=== PATIENT | female | born 1960 | race Caucasian/White ===

== ENCOUNTER 2020-12-08 15:56 | Emergency (ER) | payer BC ==
[2020-12-08 16:11] VITALS: BP 139/60; PULSE 58
[2020-12-08] MEDS ORDERED: HYDROmorphone 1 MG/ML Syringe IVPUSH ONE (16:48)
[2020-12-08] MEDS ORDERED: Hyoscyamine 0.125 MG Tab.SL SL ONE (16:48)
[2020-12-08] MEDS ORDERED: Ondansetron 4 MG/2 ML SDV IVPUSH ONE (16:48)
--- NOTE | 2020-12-08 16:54 | EDM.PDOC ---
ED HPI GENERAL MEDICAL PROBLEM - General Chief Complaint: Abdominal Pain Stated Complaint: ABD/BACK PAIN Time Seen by Provider: 12/08/20 16:44 Source of Information: Reports: Patient History Limitations: Reports: No Limitations - History of Present Illness INITIAL COMMENTS - FREE TEXT/NARRATIVE: 60-year-old female attends the ED with chief complaint of right upper quadrant abdominal pain that radiates under her costal margin into her back primarily intrascapular region. She believes it started around 12:00 today. She had a few pastries teeth earlier this morning. Last had anything to eat around 1100 hrs. She has had similar type pain in the past but never to this severity. It is happened perhaps 3 or 4 times in the last year or 2. Today she had associated nausea and vomiting of bilious material and recently eaten food. No hematemesis. No associated fever or chills. Denies any genitourinary complaints. She does report drinking alcohol little bit more heavily over the weekend as she was at a friend[place]. Perhaps 3 or 4 drinks per day. States she did have a small bowel movement this morning without any blood. She has had previous appendectomy only. Pain is constant but does have a colicky component and at present it is worse in her back than it is in her right abdomen. Onset: Today, Sudden Onset Date: 12/08/20 Onset Time: 12:00 Duration: Hour(s):, Colic (Colicky component to the pain.), Constant, Getting Worse Location: Reports: Abdomen (Right upper quadrant of the abdomen with radiation along the costal margin into the intrascapular area.) Quality: Reports: Ache, Pressure Severity: Severe (9 out of 10.) Improves with: Reports: None Worsens with: Reports: Other Context: Denies: Activity (Down and deep breathing make the pain worse.), Exercise, Lifting, Sick Contact, Trauma, Other Associated Symptoms: Reports: Loss of Appetite, Nausea/Vomiting (Nausea and vomiting x2 since onset of pain.). 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) (Nothing would stay down.) Upper Abdomen Pain Score (Numeric/FACES): 8 - Related Data Allergies Allergy/AdvReac Type Severity Reaction Status Date / Time No Known Allergies Allergy Verified 12/08/20 16:10 Home Meds: Home Meds Amitriptyline [Elavil] 50 mg PO BEDTIME 12/08/20 [History] FLUoxetine HCl [Fluoxetine] 10 mg PO DAILY 12/08/20 [History] Hyoscyamine Sulfate [Levsin-Sl] 0.125 mg SL ASDIRECTED #6 tab.subl 12/08/20 [Rx] Levothyroxine 75 mcg PO ACBREAKFAST 12/08/20 [History] Metoprolol Tartrate [Lopressor] 25 mg PO Q12HR 12/08/20 [History] Past Medical History Cardiovascular History: Reports: Hypertension Gastrointestinal History: Reports: Chronic Constipation Musculoskeletal History: Reports: Fracture Endocrine/Metabolic History: Reports: Obesity/BMI 30+ - Past Surgical History GI Surgical History: Reports: Appendectomy Female Surgical History: Reports: Section Musculoskeletal Surgical History: Reports: Other (See Below) Other Musculoskeletal Surgeries/Procedures:: Wrist Surgery Social & Family History - Tobacco Use Tobacco Use Status *Q: Never Tobacco User - Caffeine Use Caffeine Use: Reports: Coffee - Alcohol Use Alcohol Use History: Yes Days Per Week of Alcohol Use: 1 (Social alcohol user.) Alcohol Use in Last Twelve Months: Yes Alcohol Use Frequency: Socially - Recreational Drug Use Recreational Drug Use: No - Living Situation & Occupation Living situation: Reports: Occupation: Employed ED ROS GENERAL - Review of Systems Review Of Systems: See Below Constitutional: Reports: No Symptoms. Denies: Fever, Chills, Malaise, Weakness, Fatigue, Night Sweats, Diaphoresis, Weight Loss HEENT: Reports: No Symptoms Respiratory: Reports: No Symptoms Cardiovascular: Reports: No Symptoms Endocrine: Reports: No Symptoms GI/Abdominal: Reports: Constipation : Reports: No Symptoms Musculoskeletal: Reports: No Symptoms Skin: Reports: No Symptoms Neurological: Reports: No Symptoms Psychiatric: Reports: No Symptoms Hematologic/Lymphatic: Reports: No Symptoms Immunologic: Reports: No Symptoms ED EXAM, GI/ABD - Physical Exam Exam: See Below Exam Limited By: No Limitations General Appearance: Alert, WD/WN, Moderate Distress, Other (Appears to be in significant discomfort. Temperature is 36.2 degrees. Heart rate is 58 in sinus. Respiratory to 16 with O2 sats of 97% room air. BP is 139/60.) Eyes: Bilateral: Normal Appearance (No blepharal pallor or scleral icterus.) Throat/Mouth: Normal Inspection, Normal Lips, Normal Oropharynx Respiratory/Chest: No Respiratory Distress, Lungs Clear, Normal Breath Sounds, No Accessory Muscle Use Cardiovascular: Normal Peripheral Pulses, Regular Rate, Rhythm, No Edema, No Gallop, No Murmur, No Rub GI/Abdominal Exam: Soft, No Organomegaly, No Mass, Abnormal Bowel Sounds (Bowel sounds are fairly infrequent), Other (Strongly positive Linda sign.). No: Normal Bowel Sounds, Distended, Guarding, Rigid, Rebound, Tender, Hepatomegaly, Splenomegaly Back Exam: Normal Inspection, Full Range of Motion. No: CVA Tenderness (L), CVA Tenderness (R), Paraspinal Tenderness, Vertebral Tenderness Extremities: Normal Inspection, Normal Range of Motion, Non-Tender, No Pedal Edema Neurological: Alert, Oriented, CN II-XII Intact, Normal Cognition Psychiatric: Normal Affect, Normal Mood Skin Exam: Warm, Dry, Intact, Normal Color, No Rash Course - Vital Signs Last Recorded V/S: Last Vital Signs Temp 36.2 C 12/08/20 16:08 Pulse 58 L 12/08/20 16:08 Resp 16 12/08/20 16:08 BP 139/60 12/08/20 16:08 Pulse Ox 97 12/08/20 16:08 - Orders/Labs/Meds Orders: Active Orders 24 hr Category Date Time Status Abdomen Ltd [US] Stat Exams 12/08/20 16:50 Taken URINALYSIS W/MICROSCOPIC [UA W/MICROSCOPIC] [URIN] Stat Lab 12/08/20 16:50 Ordered Dextrose 5%-0.9% NaCl [Dextrose 5%-Normal Saline] 1,000 Med 12/08/20 17:00 A ctive ml IV ASDIRECTED Ketorolac [Toradol] Med 12/08/20 17:00 Active 30 mg IVPUSH ONETIME Medication Orders Dextrose/Sodium Chloride (Dextrose 5%-Normal Saline) 1,000 mls @ 250 mls/hr IV ASDIRECTED MANGO Last Admin: 12/08/20 17:02 Dose: 250 mls/hr Documented by: ZOEY Ketorolac Tromethamine (Ketorolac 30 Mg/Ml Sdv) 30 mg IVPUSH ONETIME [facility] Last Admin: 12/08/20 16:59 Dose: 30 mg Documented by: ZOEY Labs: Laboratory Tests 12/08/20 12/08/20 12/08/20 Range/Units 16:10 16:10 17:52 WBC 9.69 (3.98-10.04) K/mm3 RBC 4.22 (3.98-5.22) M/mm3 Hgb 13.2 (11.2-15.7) gm/dl Hct 39.0 (34.1-44.9) % MCV 92.4 D (79.4-94.8) fl MCH 31.3 (25.6-32.2) pg MCHC 33.8 (32.2-35.5) g/dl RDW Std Deviation 46.8 H (36.4-46.3) fL Plt Count 262 (182-369) K/mm3 MPV 10.8 (9.4-12.3) fl Neut % (Auto) 63.1 (34.0-71.1) % Lymph % (Auto) 27.9 (19.3-51.7) % [place] % (Auto) 6.6 (4.7-12.5) % Eos % (Auto) 1.9 (0.7-5.8) Baso % (Auto) 0.1 (0.1-1.2) % Neut # (Auto) 6.12 (1.56-6.13) K/mm3 Lymph # (Auto) 2.70 (1.18-3.74) K/mm3 [place] # (Auto) 0.64 H (0.24-0.36) K/mm3 Eos # (Auto) 0.18 (0.04-0.36) K/mm3 Baso # (Auto) 0.01 (0.01-0.08) K/mm3 PT 10.3 (9.7-12.0) SECONDS INR 0.96 APTT 25.1 (21.7-31.4) SECONDS Sodium 142 (136-145) mEq/L Potassium 4.4 (3.5-5.1) mEq/L Chloride 107 (98-107) mEq/L Carbon Dioxide 23 (21-32) mEq/L Anion Gap 16.4 H (5-15) BUN 9 (7-18) mg/dL Creatinine 0.9 (0.55-1.02) mg/dL Est Cr Clr Drug Dosing 69.47 mL/min Estimated GFR (MDRD) > 60 (>60) mL/min BUN/Creatinine Ratio 10.0 L (14-18) Glucose 149 H (70-99) mg/dL Calcium 8.4 L (8.5-10.1) mg/dL Magnesium 2.0 (1.8-2.4) mg/dL Total Bilirubin 0.2 (0.2-1.0) mg/dL GGT 28 (5-55) U/L AST 19 (15-37) U/L ALT 24 (14-59) U/L Alkaline Phosphatase 79 (46-116) U/L C-Reactive Protein 0.4 (<1.0) mg/dL Total Protein 7.1 (6.4-8.2) g/dl Albumin 3.5 (3.4-5.0) g/dl Globulin 3.6 gm/dL Albumin/Globulin Ratio 1.0 (1-2) Lipase 137 (73-393) U/L Meds: Medications Generic Name Dose Route Start Last Admin Trade Name Freq PRN Reason Stop Dose Admin Dextrose/Sodium Chloride 1,000 mls @ 250 mls/hr 12/08/20 17:00 12/08/20 17:02 Dextrose 5%-Normal Saline IV 250 mls/hr ASDIRECTED MANGO Administration Ketorolac Tromethamine 30 mg 12/08/20 17:00 12/08/20 16:59 Ketorolac 30 Mg/Ml Sdv IVPUSH 30 mg ONETIME [facility] Administration Discontinued Medications Generic Name Dose Route Start Last Admin Trade Name Freq PRN Reason Stop Dose Admin Hydromorphone HCl 1 mg 12/08/20 16:48 12/08/20 17:01 Hydromorphone 1 Mg/Ml Syringe IVPUSH 12/08/20 16:49 1 mg ONETIME ONE Administration Hyoscyamine 0.125 mg 12/08/20 16:48 12/08/20 16:58 Hyoscyamine 0.125 Mg Tab.Sl SL 12/08/20 16:49 0.125 mg ONETIME ONE Administration Ondansetron HCl 4 mg 12/08/20 16:48 12/08/20 16:59 Ondansetron 4 Mg/2 Ml Sdv IVPUSH 12/08/20 16:49 4 mg ONETIME ONE Administration - Radiology Interpretation Free Text/Narrative:: 60-year-old female presents to the ED with acute onset of severe right upper quadrant abdominal pain that radiates along the costal margin into the end scapular area of her back. She states it started around noon today. She states she had a few pastries this morning with last meal about 1100 hrs. Pain did cause her to have nausea and vomiting x2 of recently eaten food and bilious emesis. No hematemesis. Bowels have been sluggish due to medication she is taking. ie. chronic constipation. Did have a small normal bowel movement for her this morning with no blood. Previous abdominal surgeries that have an appendectomy. Examination reveals strongly positive Linda sign right upper quadrant with pain worsening with inspiration. Benign back exam. Plan IV D5 normal saline at 250 mils an hour. Given Dilaudid 1 mg IV with Zofran 4 mg IV and Toradol 30 mg IV. She also be given Levsin 0.125 mg sublingual. Ultrasound of the gallbladder ordered. Routine labs including serum lipase and GGT also ordered. - Re-Assessments/Exams Free Text/Narrative Re-Assessment/Exam: 12/08/20 17:53 White count is 9.69 with 63% neutrophils. Hemoglobin is 13.2 with hematocrit of 39.0. Platelet count is 262,000. Chemistry shows a sodium of 142 and a potassium of 4.4. Chloride 107 with a bicarb of 23. Anion gap was slightly elevated at 16.4. BUN is 9 with a creatinine of 0.9 and GFR greater than 60. Glucose was 149. Calcium is 8.4 slightly low. Magnesium was 2.0. Total bilirubin is 0.2. GGT is 28. Transaminases normal. Alkaline phosphatase also normal at 79. C-reactive protein is 0.4 total protein 7.1 with an albumin fraction of 3.5. Patient reports that her pain is completely gone. She cannot take a full deep breath without pain. Gallbladder ultrasound has been completed. 12/08/20 17:56 ultrasound of the gallbladder does confirm slight gallbladder wall thickening. No signs of acute cholecystitis. There are several small gallstones and one large gallstone. I also believe there is some sludge at the neck of the gallbladder. Serum lipase returned normal at 137. No renal masses or obstructive uropathy on the right side identified. 12/08/20: 18:20: She remains pain-free. She would therefore be discharged home. 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 I advised her that getting her gallbladder out would be advisable in the very n ear future as she has had multiple attacks of biliary colic and with several stones in her gallbladder and she is unlikely to improve spontaneously. Departure - Departure Time of Disposition: 18:35 Disposition: Home, Self-Care 01 Condition: Fair Clinical Impression: Biliary colic symptom Cholelithiasis Qualifiers: Cholelithiasis location: gallbladder Cholecystitis presence: without cholecystitis Biliary obstruction: without biliary obstruction Qualified Code(s): K80.20 - Calculus of gallbladder without cholecystitis without obstruction - Discharge Information *PRESCRIPTION DRUG MONITORING PROGRAM REVIEWED*: Not Applicable *COPY OF PRESCRIPTION DRUG MONITORING REPORT IN PATIENT HOLGER: Not Applicable Prescriptions: Hyoscyamine Sulfate [Levsin-Sl] 0.125 mg SL ASDIRECTED #6 tab.subl Instructions: Cholelithiasis, Biliary Colic, Adult, Gallbladder Eating Plan Referrals: Ana Roberts MD [Primary Care Provider] - Forms: ED Department Discharge Additional Instructions: Evaluation in the emergency room today in regards to acute onset of severe right upper quadrant abdominal pain radiating through to your back characteristic of gallbladder attack. And often precipitates nausea and vomiting. It is usually precipitated by eating something fatty and often occurs within 2 to 4 hours of eating the offensive food. Gallbladder ultrasound confirmed multiple small stones in your gallbladder and one large stone. Slight gallbladder wall thickening but no evidence of active gallbladder infection. Lab test also pr evelio to be normal with no sign of biliary tree obstruction and no signs of pancreatitis. Your treated emergency room with IV fluids and pain medication Dilaudid 1 mg and Zofran 4 mg for nausea relief and Toradol 30 mg IV for inflammation. This worked well to relieve your acute pain. He also did receive Levsin tablet under the tongue 0.125 mg as well. I have written a prescription for these tablets to be taken for recurrence of any similar symptoms almost immediately upon development of the symptoms. May take 1 tablet and then repeat in 10 minutes if not completely better or only partially improved. If 2 tablets do not work then further tablets will not be successful in relieving your pain you would need to return to the ED. As we discussed it is prudent to to pursue a surgeon to remove your gallbladder in the very near future since you have had several's less severe attacks of gallbladder pain. With the small stones in the gallbladder you are at risk of developing further symptoms and potential complications of gallbladder disease. Suggest follow-up with Dr. Chris and Dr Pedroza --surgeon at [facility] for discussion around removing her gallbladder. Sepsis Event Note (ED) - Evaluation Sepsis Screening Result: No Definite Risk - Focused Exam Vital Signs: Vital Signs Temp Pulse Resp BP Pulse Ox 12/08/20 16:08 36.2 C 58 L 16 139/60 97 - My Orders Last 24 Hours: My Active Orders 12/08/20 16:50 Abdomen Ltd [US] Stat URINALYSIS W/MICROSCOPIC [UA W/MICROSCOPIC] [URIN] Stat 12/08/20 17:00 Dextrose 5%-0.9% NaCl [Dextrose 5%-Normal Saline] 1,000 ml IV ASDIRECTED Ketorolac [Toradol] 30 mg IVPUSH ONETIME - Assessment/Plan Last 24 Hours: My Active Orders 12/08/20 16:50 Abdomen Ltd [US] Stat URINALYSIS W/MICROSCOPIC [UA W/MICROSCOPIC] [URIN] Stat 12/08/20 17:00 Dextrose 5%-0.9% NaCl [Dextrose 5%-Normal Saline] 1,000 ml IV ASDIRECTED Ketorolac [Toradol] 30 mg IVPUSH ONETIME
[2020-12-08] MEDS ORDERED: Dextrose 5%-0.9% NaCl 1,000 ML IV SCH (17:00)
[2020-12-08] MEDS ORDERED: Ketorolac 30 MG/ML SDV IVPUSH SCH (17:00)
--- NOTE | 2020-12-08 19:23 | US ---
Limited abdominal ultrasound: Multiple real-time images of the upper right abdomen are obtained. Comparison: No prior studies available. Liver shows no focal parenchymal abnormality. Gallstones are seen within the gallbladder. Gallbladder wall is slightly thickened. No biliary duct dilatation is seen. Right kidney shows no hydronephrosis or mass. Right kidney measures 10.0 cm in length. Pancreas is obscured by bowel gas. Inferior vena cava is patent. Proximal aorta shows no aneurysm. Main portal vein shows normal hepatopedal flow. Impression: 1. Gallstones are noted. Gallbladder wall is slightly thickened with no biliary duct dilatation. 2. Obscured pancreas from bowel gas. 3. Other portions of the right upper quadrant abdominal ultrasound are unremarkable. Diagnostic code #2 I agree with preliminary report from [facility], finalized on 12/08/20, 7:19 PM CDT, code 1
== END 2020-12-08 18:54 | disposition home or self-care (01) ==
LOC: JD.ED 15:56
DX: K80.20 Calculus of gallbladder without cholecystitis without obstruction (principal); I10 Essential (primary) hypertension; E66.9 Obesity, unspecified; Z68.33 Body mass index [BMI] 33.0-33.9, adult; Z79.899 Other long term (current) drug therapy
CPT/HCPCS: 36415; 76705; 80053; 82977; 83690; 83735; 85025; 85610; 85730; 86140; 96374; 96375; 99284; A9270; J1170; J1885; J2405; J7042

== ENCOUNTER 2020-12-09 12:21 | Emergency (ER) | payer BC ==
[2020-12-09 12:35] VITALS: BP 127/80; PULSE 65
[2020-12-09] MEDS ORDERED: HYDROmorphone 1 MG/ML Syringe IVPUSH ONE (12:42)
[2020-12-09] MEDS ORDERED: Ondansetron 4 MG/2 ML SDV IVPUSH ONE (12:42)
--- NOTE | 2020-12-09 12:42 | EDM.PDOC ---
ED HPI GENERAL MEDICAL PROBLEM - General Chief Complaint: Abdominal Pain Stated Complaint: NOT FEELING BETTER Time Seen by Provider: 12/09/20 12:34 Source of Information: Reports: Patient History Limitations: Reports: No Limitations - History of Present Illness INITIAL COMMENTS - FREE TEXT/NARRATIVE: 60-year-old female returns to the ED today with acute right upper quadrant abd ominal pain rating along the costal margin to intrascapular area similar to recurrence yesterday. She was in the emergency room shortly after 5 PM yesterday with acute biliary colic and ultrasound done at that time confirmed Bonnie lithiasis. Labs were in normal at that time. She drank only water until noon today. First meal was a croissant which did contain some mayonnaise. She developed pain in her gallbladder region within 30 to 40 minutes of eating. Associated nausea without vomiting. Pain in her back is worse at this time then pain in her upper abdomen. Pain however is exactly the same as it was yesterday. Patient is nauseated and mildly pallid. She has not had a bowel movement since yesterday to indicate that stool was looking pale or martin. She did try to Levsin 0.125 mg tablet sublingual that I had prescribed yesterday but neither 1 relieved her pain. She therefore ended up returning to the ED. She denies fever or chills. Onset: Today, Sudden Onset Date: 12/09/20 Onset Time: 12:00 Duration: Minutes:, Colic (Mild colicky component to the pain.), Constant Location: Reports: Abdomen (Right upper quadrant abdominal pain rating along the costal margin into the back.), Back (Intrascapular pain) Quality: Reports: Ache, Pressure, Other (Deep aching pain) Severity: Severe (constant with occasional worsening of the pain suggesting colicky component) Improves with: Reports: None ( 9 out of 10) Worsens with: Reports: Other Context: Reports: Other (Recurrent biliary colic.). Denies: Activity (Worse with lying down. No position is really comfortable.), Exercise, Lifting, Sick Contact, Trauma Associated Symptoms: Reports: Loss of Appetite, Nausea/Vomiting. Denies: Confusion, Chest Pain, Cough, cough w sputum, Diaphoresis, Fever/Chills, Headaches (At present but otherwise was feeling well before eating dinner today.), Malaise, Rash, Seizure (Nausea with no vomiting), Shortness of Breath, Syncope, Weakness Treatments COOPERATIVE MANAGER: Reports: Other (see below) (Levsin 0.125 mg x 2 tablets as written yesterday without relief of pain.) Upper Abdomen Pain Score (Numeric/FACES): 9 - Related Data Allergies Allergy/AdvReac Type Severity Reaction Status Date / Time No Known Allergies Allergy Verified 12/09/20 12:34 Home Meds: Home Meds Amitriptyline [Elavil] 50 mg PO BEDTIME 12/08/20 [History] FLUoxetine HCl [Fluoxetine] 10 mg PO DAILY 12/08/20 [History] Hyoscyamine Sulfate [Levsin-Sl] 0.125 mg SL ASDIRECTED #6 tab.subl 12/08/20 [Rx] Levothyroxine 75 mcg PO ACBREAKFAST 12/08/20 [History] Metoprolol Tartrate [Lopressor] 25 mg PO Q12HR 12/08/20 [History] Cefdinir [Omnicef] 300 mg PO BID #12 cap 12/09/20 [Rx] Ondansetron [Zofran] 4 mg BUCCAL Q6H PRN #6 tab 12/09/20 [Rx] oxyCODONE HCl/Acetaminophen [Percocet 5-325 mg Tablet] 1 - 2 each PO Q4H PRN #14 tablet 12/09/20 [Rx] Past Medical History Cardiovascular History: Reports: Hypertension Gastrointestinal History: Reports: Chronic Constipation Musculoskeletal History: Reports: Fracture Endocrine/Metabolic History: Reports: Hypothyroidism (On levothyroxine supplementation), Obesity/BMI 30+ - Past Surgical History GI Surgical History: Reports: Appendectomy Female Surgical History: Reports: Section Musculoskeletal Surgical History: Reports: Other (See Below) Other Musculoskeletal Surgeries/Procedures:: Wrist Surgery Social & Family History - Caffeine Use Caffeine Use: Reports: Coffee - Living Situation & Occupation Living situation: Reports: 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 We had spoken yesterday about getting her gallbladder removed before the start of school which she would prefer to do. The plan was for her to follow-up with -to seek surgical opinion. Her primary care physician is Dr. Lexy Chris who is out of the of) ED ROS GENERAL - Review of Systems Review Of Systems: See Below Constitutional: Reports: Malaise. Denies: Fever, Chills HEENT: Reports: No Symptoms Respiratory: Reports: No Symptoms Cardiovascular: Reports: No Symptoms Endocrine: Reports: No Symptoms GI/Abdominal: Reports: Abdominal Pain (Recurrent biliary colic. Similar event yesterday.), Nausea (See history of present illness). Denies: Constipation, Diarrhea : Reports: No Symptoms Musculoskeletal: Reports: No Symptoms Skin: Reports: No Symptoms Neurological: Reports: No Symptoms Psychiatric: Reports: Depression (On Prozac.) Hematologic/Lymphatic: Reports: No Symptoms Immunologic: Reports: No Symptoms ED EXAM, GI/ABD - Physical Exam Exam: See Below Exam Limited By: No Limitations General Appearance: Alert, WD/WN, Moderate Distress, Other (In obvious discomfort. Quite pale in appearance. Vital signs show temperature of 36.1 with heart rate of 65 and sinus. Of note she is on a beta-radha for hypertension. Respiratory to 16 with O2 sats of 99%. Blood pressure 127/80.) Eyes: Bilateral: Normal Appearance Respiratory/Chest: No Respiratory Distress, Lungs Clear, Normal Breath Sounds, No Accessory Muscle Use Cardiovascular: Normal Peripheral Pulses, Regular Rate, Rhythm, No Edema, No Gallop, No Murmur, No Rub GI/Abdominal Exam: Soft, No Organomegaly, No Distention, Tender (Tender right upper quadrant of the abdomen towards the midline with a positive Linda sign.), Abnormal Bowel Sounds (Bowel sounds are few and far between. Decreased from normal.). No: Normal Bowel Sounds Back Exam: Normal Inspection, Full Range of Motion, CVA Tenderness (R) (Mild tenderness on palpation of right flank.). No: CVA Tenderness (L) Extremities: Normal Inspection, Normal Range of Motion, Non-Tender, No Pedal Edema Neurological: Alert, Oriented, CN II-XII Intact, Normal Cognition Psychiatric: Normal Affect Skin Exam: Warm, Dry, Intact, No Rash (Mildly pallid.), Pallor Course - Vital Signs Last Recorded V/S: Last Vital Signs Temp 36.1 C 12/09/20 12:34 Pulse 65 12/09/20 12:34 Resp 16 12/09/20 12:34 BP 127/80 12/09/20 12:34 Pulse Ox 99 12/09/20 12:34 - Orders/Labs/Meds Orders: Active Orders 24 hr Category Date Time Status Dextrose 5%-0.9% NaCl [Dextrose 5%-Normal Saline] 1,000 Med 12/09/20 12:45 Active ml IV ASDIRECTED Ketorolac [Toradol] Med 12/09/20 12:45 Active 30 mg IVPUSH ONETIME cefTRIAXone [Rocephin] 2 gm Med 12/09/20 14:15 Active Sodium Chloride 0.9% [Normal Saline] 100 ml IV Q24H Medication Orders Dextrose/Sodium Chloride (Dextrose 5%-Normal Saline) 1,000 mls @ 500 mls/hr IV ASDIRECTED MANGO Last Admin: 12/09/20 12:53 Dose: 500 mls/hr Documented by: ZOEY Ceftriaxone Sodium 2 gm/ (Sodium Chloride) 100 mls @ 200 mls/hr IV Q24H [facility] Last Admin: 12/09/20 14:23 Dose: 200 mls/hr Documented by: ZOEY Ketorolac Tromethamine (Ketorolac 30 Mg/Ml Sdv) 30 mg IVPUSH ONETIME [facility] Last Admin: 12/09/20 12:51 Dose: 30 mg Documented by: ZOEY Labs: Laboratory Tests 12/09/20 12/09/20 Range/Units 12:40 12:40 WBC 11.59 H (3.98-10.04) K/mm3 RBC 4.14 (3.98-5.22) M/mm3 Hgb 13.1 (11.2-15.7) gm/dl Hct 38.4 (34.1-44.9) % MCV 92.8 (79.4-94.8) fl MCH 31.6 (25.6-32.2) pg MCHC 34.1 (32.2-35.5) g/dl RDW Std Deviation 46.5 H (36.4-46.3) fL Plt Count 243 (182-369) K/mm3 MPV 10.1 (9.4-12.3) fl Neut % (Auto) 62.3 (34.0-71.1) % Lymph % (Auto) 27.1 (19.3-51.7) % Gem % (Auto) 8.5 (4.7-12.5) % Eos % (Auto) 1.6 (0.7-5.8) Baso % (Auto) 0.2 (0.1-1.2) % Neut # (Auto) 7.23 H (1.56-6.13) K/mm3 Lymph # (Auto) 3.14 (1.18-3.74) K/mm3 Gem # (Auto) 0.98 H (0.24-0.36) K/mm3 Eos # (Auto) 0.19 (0.04-0.36) K/mm3 Baso # (Auto) 0.02 (0.01-0.08) K/mm3 Sodium 140 (136-145) mEq/L Potassium 4.1 (3.5-5.1) mEq/L Chloride 105 (98-107) mEq/L Carbon Dioxide 26 (21-32) mEq/L Anion Gap 13.1 (5-15) BUN 8 (7-18) mg/dL Creatinine 0.9 (0.55-1.02) mg/dL Est Cr Clr Drug Dosing 69.47 mL/min Estimated GFR (MDRD) > 60 (>60) mL/min BUN/Creatinine Ratio 8.9 L (14-18) Glucose 108 H (70-99) mg/dL Calcium 8.6 (8.5-10.1) mg/dL Total Bilirubin 0.5 (0.2-1.0) mg/dL GGT 204 H (5-55) U/L AST 112 H (15-37) U/L ALT 58 (14-59) U/L Alkaline Phosphatase 111 (46-116) U/L C-Reactive Protein 2.2 H* (<1.0) mg/dL Total Protein 7.0 (6.4-8.2) g/dl Albumin 3.4 (3.4-5.0) g/dl Globulin 3.6 gm/dL Albumin/Globulin Ratio 0.9 L (1-2) Lipase 117 (73-393) U/L Meds: Medications Generic Name Dose Route Start Last Admin Trade Name Freq PRN Reason Stop Dose Admin Dextrose/Sodium Chloride 1,000 mls @ 500 mls/hr 12/09/20 12:45 12/09/20 12:53 Dextrose 5%-Normal Saline IV 500 mls/hr ASDIRECTED MANGO Administration Ceftriaxone Sodium 2 gm/ 100 mls @ 200 mls/hr 12/09/20 14:15 12/09/20 14:23 Sodium Chloride IV 200 mls/hr Q24H [facility] Administration Ketorolac Tromethamine 30 mg 12/09/20 12:45 12/09/20 12:51 Ketorolac 30 Mg/Ml Sdv IVPUSH 30 mg ONETIME MANGO Administration Discontinued Medications Generic Name Dose Route Start Last Admin Trade Name Ruby PRN Reason Stop Dose Admin Hydromorphone HCl 1 mg 12/09/20 12:42 12/09/20 12:52 Hydromorphone 1 Mg/Ml Syringe IVPUSH 12/09/20 12:43 1 mg ONETIME ONE Administration Ondansetron HCl 4 mg 12/09/20 12:42 12/09/20 12:50 Ondansetron 4 Mg/2 Ml Sdv IVPUSH 12/09/20 12:43 4 mg ONETIME ONE Administration - Radiology Interpretation Free Text/Narrative:: 60-year-old female returns to the ED with acute right upper quadrant abdominal pain rating through to her interscapular area and her back. Patient was seen through the ED last evening with similar complaint with right upper quadrant abdominal pain nausea and vomiting. Ultrasound of the gallbladder done last evening confirmed multiple gallstones within the gallbladder. Lab test revealed no signs of infection and no signs of biliary tree obstruction. Patient was treated with clear fluids. She received IV fluids yesterday with Dilaudid 1 mg and Zofran 4 mg IV and Toradol 30 mg IV. She also did receive Levsin 0.125 mg sublingual x1 tablet. She has been taking only clear fluids primarily water since leaving the department last evening. She did eat dinner today about 1130 which was a croissant with mayonnaise in it. Within 30 to 40 minutes of eating she developed recurrent biliary colic. Plan IV D5 normal saline at 200 mils an hour. Dilaudid 1 mg IV with Zofran 4 mg IV and Toradol 30 mg IV for acute pain relief. Repeat labs will be done to make sure there is no biliary tree obstruction. - Re-Assessments/Exams Free Text/Narrative Re-Assessment/Exam: 12/09/20 13:52 White count is mildly elevated at 11.59. Neutrophil count is 62.3% on auto differential. Hemoglobin 13.1 hematocrit of 38.4 platelet count 243,000. Chemistry shows a sodium of 140 and a potassium of 4.1. Chloride is 105 with a bicarb of 26. Anion gap is normal at 13.1. BUN is 8 with a creatinine of 0.9 and a GFR greater than 60. Glucose is 108. Calcium is 8.6. Total bilirubin is 0.5 GGT is elevated today at 204. AST is 112 ALT is 58. Alkaline phosphatase remains normal at 111. C-reactive protein is 2.2 lipase is 117. Total protein is 7.0 with albumin fraction of 3.4. 12/09/20 14:20: Unfortunately I was unable to reach today. She has no clinics today. She will be in surgery the rest of this week. I did make the patient an appointment to see for surgical consultation on MondayDec 14 at 0830 am. Due to the mildly elevated white blood cell count and GTT indicating that there is some degree of cholecystitis patient will be treated with Rocephin 2 g intravenously. Her pain is completely resolved with above medications. The plan will be to send her home with Zofran sublingual to be used every 4 hours. For nausea or vomiting. Percocet tabs 5 325 mg strength 1 or 2 every 4-6 hours as needed for recurrence of similar type pain. Omnicef 300 mg twice daily for the next 6 days to tentatively prevent significant cholecystitis from occurring. 12/09/20 15:20: Patient feels much improved with no further pain. She has completed 2 g of Rocephin IV. She will be discharged home. She will return if she develops pain that is not controlled or unable to keep down oral medi cations. Also if she develops fever combination chills she is to return to the ED. Departure - Departure Time of Disposition: 15:28 Disposition: Home, Self-Care 01 Condition: Fair Clinical Impression: Recurrent biliary colic, Cholecystitis Cholecystitis, acute with cholelithiasis Qualifiers: Biliary obstruction: without biliary obstruction Qualified Code(s): K80.00 - Calculus of gallbladder with acute cholecystitis without obstruction - Discharge Information *PRESCRIPTION DRUG MONITORING PROGRAM REVIEWED*: Not Applicable *COPY OF PRESCRIPTION DRUG MONITORING REPORT IN PATIENT HOLGER: Not Applicable Prescriptions: Cefdinir [Omnicef] 300 mg PO BID #12 cap oxyCODONE HCl/Acetaminophen [Percocet 5-325 mg Tablet] 1 - 2 each PO Q4H PRN #14 tablet PRN Reason: pain relief. Ondansetron [Zofran] 4 mg BUCCAL Q6H PRN #6 tab PRN Reason: nausea or vomiting Instructions: Cholelithiasis, [id number], Biliary Colic, Adult Referrals: Ana Roberts MD [Primary Care Provider] - Forms: ED Department Discharge Additional Instructions: Evaluation in the emergency room today in regards to recurrence of biliary colic right upper quad abdominal pain rating through to her back. Multiple gallstones confirmed within the gallbladder on ultrasound done yesterday through the emergency department. Unfortunately developed recurrence of biliary colic/ gallbladder pain with first meal since gallbladder attack yesterday. Labs done today suggest that there is a low-grade inflammation of your gallbladder which we call cholecystitis. For this reason you were treated with antibiotic Rocephin 2 g IV in the emergency department. Treatment at home is to continue clear fluids and carbohydrates such as white bread with jam on it etc. for the next couple of days. Trying to avoid fats and high protein foods that would stimulate the gallbladder to work. Prescriptions written today were for Zofran which can be taken under the tongue every 4-6 hours necessary for relief of naus ea or vomiting. Percocet tabs 5/325 mg strength 1 or 2 every 4 hours as necessary for relief of gallbladder attack if it reoccurs. Antibiotic to be Omnicef 300 mg tablet twice daily for the next 6 days starting tomorrow for low- grade inflammation/infection of the gallbladder. You would need to return to the hospital if you develop uncontrolled pain, persistent nausea or vomiting or severe chills. This would mean that the gallbladder is become severely inflamed and needs to be removed surgically urgently. I have made you an appointment to see --surgeon at [facility] on MondayDecember 14 at 0830hrs in the morning to discuss getting your gallbladder removed surgically. Sepsis Event Note (ED) - Focused Exam Vital Signs: Vital Signs Temp Pulse Resp BP Pulse Ox 12/09/20 12:34 36.1 C 65 16 127/80 99 - My Orders Last 24 Hours: My Active Orders 12/09/20 12:45 Dextrose 5%-0.9% NaCl [Dextrose 5%-Normal Saline] 1,000 ml IV ASDIRECTED Ketorolac [Toradol] 30 mg IVPUSH ONETIME 12/09/20 14:15 cefTRIAXone [Rocephin] 2 gm Sodium Chloride 0.9% [Normal Saline] 100 ml IV Q24H - Assessment/Plan Last 24 Hours: My Active Orders 12/09/20 12:45 Dextrose 5%-0.9% NaCl [Dextrose 5%-Normal Saline] 1,000 ml IV ASDIRECTED Ketorolac [Toradol] 30 mg IVPUSH ONETIME 12/09/20 14:15 cefTRIAXone [Rocephin] 2 gm Sodium Chloride 0.9% [Normal Saline] 100 ml IV Q24H
[2020-12-09] MEDS ORDERED: Dextrose 5%-0.9% NaCl 1,000 ML IV SCH (12:45)
[2020-12-09] MEDS ORDERED: Ketorolac 30 MG/ML SDV IVPUSH SCH (12:45)
[2020-12-09] MEDS ORDERED: cefTRIAXone 2 GM in Sodium Chloride 0.9% 100 ML IV SCH (14:15)
== END 2020-12-09 15:13 | disposition home or self-care (01) ==
LOC: JD.ED 12:21
DX: K80.00 Calculus of gallbladder with acute cholecystitis without obstruction (principal); E03.9 Hypothyroidism, unspecified; I10 Essential (primary) hypertension; E66.9 Obesity, unspecified; Z68.34 Body mass index [BMI] 34.0-34.9, adult; Z79.899 Other long term (current) drug therapy
CPT/HCPCS: 36415; 80053; 82977; 83690; 85025; 86140; 96365; 96375; 99284; J0696; J1170; J1885; J2405; J7042; 99283